=== PATIENT | male | born 1985 | race Two or more races ===

== ENCOUNTER 2025-04-14 13:40 | Emergency (ER) | payer MEDICAID, SELFPAY ==
[2025-04-14 13:50] VITALS: PULSE 102
== END 2025-04-14 17:11 | disposition left against medical advice (07) ==
LOC: SERX 13:43
PROVIDERS: Emergency Provider Emergency Medicine
DX: Z53.21 Procedure and treatment not carried out due to patient leaving prior to being seen by health care provider (principal)
CPT/HCPCS: 99281